=== PATIENT | male | born 1995 | race African-American/Black ===

== ENCOUNTER 2020-05-14 12:12 | Emergency (ER) | payer MEDICAID ==
[~2020-05-14] VITALS: Ht 182.9 cm; Wt 81.6 kg
[2020-05-14 12:47] VITALS: BP 131/75
--- NOTE | 2020-05-14 12:48 | NUR ---
DISCHARGED HOME WITH INSTRUCTION TO FOLLOW UP WITH PMD
--- NOTE | 2020-05-14 14:03 | Emergency Room Report ---
History of Present Illness General Chief Complaint: Laceration Source: Patient Present Illness HPI 5-year-old male here with left lip laceration. Patient said that he was skateboarding and he fell landing on his left lip last night. This occurred approximately 14 hours prior to come to the emergency department. He was able to stop the bleeding with pressure alone. Denies loss of consciousness. Says teeth feel normal alignment. He cleaned the wound out with water. At this time denies headache, neck pain, focal numbness or weakness, vision changes. Allergies: Coded Allergies: No Known Allergies (Unverified , 05/14/20) COVID-19 Screening Contact w/high risk pt: No Experienced COVID-19 symptoms?: No COVID-19 Testing performed PLUSH CUTTER: No Nursing Documentation-[facility] Past Medical History: No Stated History Review of Systems All Other Systems: negative except mentioned in HPI Physical Exam Vital Signs Date Time Temp Pulse Resp B/P (MAP) Pulse Ox O2 Delivery O2 Flow Rate FiO2 05/14/20 12:19 98.8 86 16 131/75 (93) 96 Room Air Sp02 EP Interpretation: reviewed, normal General Appearance: no apparent distress, alert, non-toxic Head: normocephalic Eyes: bilateral eye normal inspection, bilateral eye PERRL ENT: hearing grossly normal, normal pharynx, no angioedema, normal voice, other - 1.5 cm linear laceration on the left lower lip internal mucosal surface Neck: full range of motion, supple/symm/no masses Respiratory: chest non-tender, lungs clear, normal breath sounds, speaking full sentences Cardiovascular #1: regular rate, rhythm, no edema Cardiovascular #2: 2+ carotid (R), 2+ carotid (L), 2+ radial (R), 2+ radial (L), 2+ dorsalis pedis (R), 2+ dorsalis pedis (L) Gastrointestinal: normal bowel sounds, non tender, soft, non-distended, no guarding, no rebound Rectal: deferred Genitourinary: normal inspection, no CVA tenderness Musculoskeletal: back normal, normal range of motion, gait/station normal, non- tender Neurologic: alert, motor strength/tone normal, oriented x3, sensory intact, responsive, speech normal Psychiatric: judgement/insight normal, memory normal, mood/affect normal, no suicidal/homicidal ideation Lymphatic: no adenopathy Procedures Laceration/Wound Repair Laceration/Wound Repair : Consent: Verbal Wound Location: other - Left lower lip Wound Length (cm): 1 Wound Explored: clean Anesthesia: 1% Lidocaine Suture Size/Type: 5:0, other - Vicryl Number of Sutures: 3 Splint Applied?: No Sling Applied?: No Patient Tolerated: Well Complications: None Medical Decision Making Diagnostic Impression: Primary Impression: Lip laceration ER Course 25-year-old male here with lip laceration. Patient no evidence of other head trauma or neck pain or neck stiffness. He was neurovascular intact. The lip laceration was repaired using absorbable sutures as described above. Patient tolerated procedure well. Discharged in stable condition. Last Vital Signs Date Time Temp Pulse Resp B/P (MAP) Pulse Ox O2 Delivery O2 Flow Rate FiO2 05/14/20 12:47 98.8 16 131/75 96 Room Air 05/14/20 12:19 86 Disposition: HOME, SELF-CARE Condition: Stable Referrals: [facility] Patient Instructions: Facial Laceration Ben Arellano M.D. May 14, 2020 14:03
[2020-05-16] MEDS ORDERED: CLINDAMYCIN HC300 MG ORAL (12:16)
== END 2020-05-14 12:47 | disposition home or self-care (01) ==
LOC: EMR 12:28
DX: S01.511A Laceration without foreign body of lip, initial encounter (principal); V00.131A Fall from skateboard, initial encounter; Y93.51 Activity, roller skating (inline) and skateboarding; Y92.9 Unspecified place or not applicable
CPT/HCPCS: 12011; Z7502; 99282

== ENCOUNTER → 2020-05-16 | Emergency (ER) | payer OTHER, MEDICAID ==
[~2020-05-16] VITALS: Ht 182.9 cm; Wt 81.6 kg
[~2020-05-16] MED LIST: CLINDAMYCIN HC300 MG ORAL; Clindamycin 150mg cap ORAL SCH
--- NOTE | 2020-05-16 12:24 | Emergency Room Report ---
History of Present Illness General Chief Complaint: Wound Recheck/Suture Removal Source: Patient Present Illness HPI Patient is a 25-year-old male who presents to the ER for wound check. Patient was seen here 2 days ago after sustaining a laceration to his lips from a fall. Patient states he was not discharged with any antibiotics and feels like it looks infected. He also wants to know if there could be further closure of the lip laceration. I explained to him that due to the fact that it is 2-1/2 days since the incident and that it is infected I am unable to do further surgical repair but recommend that he see a plastic surgeon or an ENT. Allergies: Coded Allergies: No Known Allergies (Unverified , 05/14/20) COVID-19 Screening Contact w/high risk pt: No Experienced COVID-19 symptoms?: No COVID-19 Testing performed SCLEROSCOPE TESTER: No Patient History Reviewed Nursing Documentation: PMH: Agreed; PSxH: Agreed Nursing Documentation-PM Past Medical History: No Stated History Review of Systems All Other Systems: negative except mentioned in HPI Physical Exam Vital Signs Date Time Temp Pulse Resp B/P (MAP) Pulse Ox O2 Delivery O2 Flow Rate FiO2 05/16/20 12:14 98.4 86 18 130/80 (97) 98 Room Air Sp02 EP Interpretation: reviewed, normal General Appearance: no apparent distress, alert, GCS 15, non-toxic Head: normocephalic, atraumatic Eyes: bilateral eye normal inspection, bilateral eye PERRL ENT: other - Left-sided inner lower lip open laceration with yellowish purulent discharge Neck: supple, no meningismus Respiratory: chest non-tender, normal breath sounds, no respiratory distress Cardiovascular #1: regular rate, rhythm Rectal: deferred Musculoskeletal: normal range of motion Neurologic: clearing distribution clerk III-XII nml as tested, oriented x3 Psychiatric: no suicidal/homicidal ideation Skin: no rash Medical Decision Making Diagnostic Impression: Primary Impression: Infected lip laceration ER Course Patient started on clindamycin. I explained to him that I am unable to repair his lip laceration at this time due to the fact that it is infected and it is almost 3 days since the incident. I explained to him that he should follow-up either with an ENT or facial surgeon. He demonstrated understanding. After discussing risks and benefits of further diagnostics, treatment plans, as well as indications for and risks of admission, the patient is agreeable to being discharged home. I have explained that their evaluation and treatment in the emergency department today is an important step towards them achieving better health but that their evaluation today is not intended to replace further evaluation and treatment by a physician in their local clinic. I have explained that while the current findings suggest no immediate life threatening emergency they will require further evaluation and treatment by a physician of their choice in their area. They understand that it will be necessary for them to review the final reports of their ED visit with their clinic physician. We have reviewed indications for return to the Emergency Department. I have explained that additional time may need to pass and/or additional testing as an outpatient may be necessary before a definitive diagnosis can be made. They tell me they are willing to follow up as instructed within the timeframe I recommend. They appear to understand what we discussed. Additionally they understand that if they are unable to be seen by an outpatient physician they are welcome, and in fact should, return to the Emergency Department for a repeat evaluation. The patient is stable at time of discharge. Last Vital Signs Date Time Temp Pulse Resp B/P (MAP) Pulse Ox O2 Delivery O2 Flow Rate FiO2 05/16/20 12:14 98.4 86 18 130/80 (97) 98 Room Air Disposition: HOME, SELF-CARE Condition: Stable Scripts Clindamycin Hcl (CLINDAMYCIN HCL) 300 Mg Capsule 300 MG ORAL THREE TIMES A DAY for 10 Days, CAP Prov: Елена Bateman M.D. 05/16/20 Referrals: [facility] Rebecca [facility] Patient Instructions: Laceration Care, Adult, [id number] Additional Instructions: Please follow-up with a plastic surgeon for further treatment of your lip laceration. Елена Bateman M.D. May 16, 2020 12:24
[2020-05-16 14:02] VITALS: BP 130/80
[2020-05-16 14:03] VITALS: BP 130/80
== END | disposition home or self-care (01) ==
LOC: EMR 11:36
DX: L08.9 Local infection of the skin and subcutaneous tissue, unspecified (principal); S01.511A Laceration without foreign body of lip, initial encounter; W01.0XXA Fall on same level from slipping, tripping and stumbling without subsequent striking against object, initial encounter; Y93.9 Activity, unspecified; Y92.9 Unspecified place or not applicable
CPT/HCPCS: 99282